=== PATIENT | female | born 1985 | race Caucasian/White ===

== ENCOUNTER 2016-10-04 08:53 | Day surgery (SDC) | payer OTHER ==
[~2016-10-04 08:53] MED LIST: RINGERS SOLUTION,LACTATED 1,000 ML IV PRN
[2016-10-04] MEDS ORDERED: RINGERS SOLUTION,LACTATED 1,000 ML IV ONE ×2 (09:30→11:35)
[2016-10-04 10:03] LABS: Hematocrit 36.8 % (37.0-47.0); Hemoglobin 12.3 gm/dL (12.5-16.0); Mean Cell Volume 85.4 fl (78-100); Mean Corpuscular Hemoglobin 28.5 pg (27-31); Mean Corpuscular Hgb Conc 33.4 g/dl (32-36); Neutrophil # 2.9 K/mm3 (1.3-6.0); Neutrophil % 58.6 % (42-75.0); Platelet Count 205 K/mm3 (150-450); Red Blood Count 4.31 M/mm3 (4.2-5.4); Red Cell Distribution Width 12.5 % (11.5-14.0)
--- NOTE | 2016-10-04 11:01 | OR ---
Operative Report - Dictated Report Narrative: Operative Report 10/04/16 Loop Electrical Excisional Procedure Preoperative Diagnosis: Cervical Intraepithelial Neoplasia 2 Postoperative Diagnosis: Cervical Intraepithelial Neoplasia 2 Procedure: Loop Electrical Excisional Procedure Surgeon: Kathy Avelar M.D. Anesthesia: Henrique Longoria TALENT DEVELOPMENT CONSULTANT, IV sedation Findings: Loop 20 x 8 mm Fluids: 400 ml EBL: Minimal Drains: None Pathology: LEEP specimen Complications: None Condition: Stable Procedure: The patient was taken to the operating room with IV fluids running. She was placed in dorsal lithotomy position. She was prepped and draped in the normal sterile fashion. A coated bivalve speculum was placed into the vagina. The cervix was visualized with the findings noted above. LEEP was performed with 20 x 8 mm loop. The entire area was cauterized with rollerball Bovie cautery. The area was hemostatic. The patient tolerated the procedure well. Sponge counts were correct x 2. She was taken to ambulatory in stable condition.
[2016-10-04] MEDS ORDERED: oxyCODONE HCL/ACETAMINOPHEN 1 TAB TABLET PO PRN (11:10)
[2016-10-04] MEDS ORDERED: IBUPROFEN 600 MG TABLET PO PRN (11:11)
[2016-10-04] MEDS ORDERED: traMADol HCL 50 MG TABLET PO ONE (13:00)
[2016-10-04] MEDS ORDERED: traMADol HCL 50 MG TABLET ONE (13:03)
[2016-10-04 14:16] VITALS: BP 108/60
== END 2016-10-04 08:54 | disposition home or self-care (01) ==
LOC: AMB 08:53
PROVIDERS: ATTEND Obstetrics & Gynecology
PROC: 0UBC7ZX Excision of Cervix, Via Natural or Artificial Opening, Diagnostic (ICD-10-PCS; principal; 2016-10-04 10:35)
DX: N87.1 Moderate cervical dysplasia (principal); Z68.21 Body mass index [BMI] 21.0-21.9, adult

== ENCOUNTER 2016-11-28 20:52 | Emergency (ER) | payer OTHER ==
[2016-11-28 21:47] LABS: Hematocrit 39.3 % (37.0-47.0); Hemoglobin 12.9 gm/dL (12.5-16.0); Mean Cell Volume 85.2 fl (78-100); Mean Corpuscular Hgb Conc 32.8 g/dl (32-36); Mean Platelet Volume 9.5 fl (6.0-9.5); Neutrophil # 3.1 K/mm3 (1.3-6.0); Platelet Count 278 K/mm3 (150-450); Red Blood Count 4.61 M/mm3 (4.2-5.4); Red Cell Distribution Width 12.6 % (11.5-14.0); White Blood Count 6.7 K/mm3 (4.0-10.5)
[2016-11-28 22:00] LABS: Albumin * 3.6 gm/dl (3.4-5.0); Anion Gap 11.2 mmol/L (6.8-13.8); BUN/Creatinine Ratio 13.6 (9.0-21.6); Bilirubin, Total 0.2 mg/dL (0.0-1.1); Ca. Corrected For Albumin 8.7 mg/dL (8.4-10.2); Calcium * 8.7 mg/dL (7.9-10.9); Carbon Dioxide 27.5 mmol/L (24-32.6); Potassium 3.7 mmol/L (3.4-4.6); Total Protein 7.7 gm/dL (6.2-8.2)
--- NOTE | 2016-11-28 22:50 | ERNOTE ---
Medical Problem HPI - General Chief Complaint: General Assessment Time Seen by Provider: 11/28/16 22:28 Source: patient Exam Limitations: no limitations - Immun/Allergies/Home Medications Immunizations: IMMUNIZATION HX Immunizations Up to Date No History of Influenza Vaccine Yes Hx Pneumococcal Vaccination No Allergies/Adverse Reactions: Allergies penicillin G Allergy (Mild, Verified 11/28/16 21:28) Hives promethazine HCl [From Phenergan] Adverse Reaction (Intermediate, Verified 11/28 21:28) Other choreform movements Sulfa (Sulfonamide Antibiotics) Adverse Reaction (Intermediate, Verified 21:28) Other paralysiss codeine Adverse Reaction (Mild, Verified 11/28/16 21:28) Vomiting nausea, anorexia hydrocodone bitartrate [From Vicodin] Adverse Reaction (Mild, Verified 11/28/16 21:28) Vomiting Home Medications: HOME MEDICATIONS Norgestimate-Ethinyl Estradiol [Ortho Tri-Cyclen Lo] 1 each PO DAILY 02/16/15 [ Last Taken Unknown] Eluxadoline [Viberzi] 75 mg PO 3XW 11/28/16 [Last Taken Unknown] Ibuprofen 800 mg PO Q4H 11/28/16 [Last Taken 11/28/16 16:00] - History of Present History Narrative: had chest pain 4 days ago and was seen at [facility] ED and dx with pleurisy. today she felt weak and possibly had syncopal episode. has headache that hurts when she moves her eyes. Timing: getting worse Severity: moderate Review of Systems - Review of Systems Constitutional: Present: recent illness - minor cough that resolved EYE: Present: eye pain - upon movements. Absent: vision changes ENT: Present: nose congestion - a week ago Respiratory: Present: See HPI, shortness of breath, cough Cardiology: Present: See HPI, chest pain Gastrointestinal/Abdominal: Absent: vomiting, diarrhea Genitourinary: Present: frequency. Absent: pain, dysuria Musculoskeletal: Present: no symptoms reported Skin: Present: no symptoms reported Neurological: Present: See HPI, headache, dizziness/light-headedness, weakness Endocrine: Present: no symptoms reported Hematologic/Lymphatic: Present: no symptoms reported Psych: Present: no symptoms reported - Patient's Past Medical History Patient History - Medical: Seizures, Other Patient History - Cardiac/Respiratory: Other Patient History - Cancer: No Hx of Cancer Patient History - Surgical Procedures: Cholecystectomy, Colonoscopy, , Other Patient History - Other: None LMP (Calendar): 09/29/16 - Family History Mother Family History - Medical: Other Family History - Cardiac/Respiratory: Other Family History - Cancer: Other Father Family History - Medical: Other Family History - Cardiac/Respiratory: Hypertension Family History - Cancer: No pertinent family hx Grandfather-Paternal Family History - Medical: Diabetes Type 2 Family History - Cardiac/Respiratory: Hypertension Family History - Cancer: No pertinent family hx Grandfather-Maternal Family History - Medical: No pertinent hx Family History - Cardiac/Respiratory: CVA/Stroke Family History - Cancer: No pertinent family hx Sister Family History - Medical: No pertinent hx Family History - Cardiac/Respiratory: No pertinent hx Family History - Cancer: Metatastic, Thyroid, Other - Social History Living Situations: home Abuse History: No History of abuse Psych History: Hx of Depression Smoking Status: Never smoker Alcohol Use: occasionally Drug Use: none - Immunizations Immunizations Up to Date: No Hx Pneumococcal Vaccination: No History of Influenza Vaccine: Yes Physical Exam - Physical Exam General Appearance: Present: wd/wn, lethargic - somewhat Eye Exam: Normal inspection: bilateral, PERRL: bilateral, EOMI: bilateral Ears, Nose, Throat: Present: normal ENT inspection, normal pharynx. Absent: sinus pain/drainage Neck: Present: normal inspection, nontender Respiratory: Present: no respiratory distress, normal breath sounds, no accessory muscle use, chest nontender, lungs clear Cardiovascular/Chest: Present: regular rate, rhythm, no murmur, normal peripheral pulses Gastrointestinal/Abdominal: Present: normal bowel sounds, nontender, nondistended Back Exam: Present: normal inspection, normal range of motion Extremity Exam: Present: normal inspection, normal range of motion Neurological Exam: Present: oriented, no motor/sensory deficits Skin Exam: Present: normal color, warm/dry Lymphatic Exam: Present: no adenopathy ED Progress - Results and Orders Patient's Lab Results:: I have reviewed the patient's lab results. Results and Orders: Laboratory Tests 11/28/16 11/28/16 11/28/16 21:34 21:45 21:45 WBC 6.7 Hgb 12.9 Hct 39.3 Plt Count 278 ESR 20 H D-Dimer Sodium 139 Potassium 3.7 Chloride 104 Carbon Dioxide 27.5 Anion Gap 11.2 BUN 9 Creatinine 0.66 Est GFR (Non-Af Amer) 111 Random Glucose 95 Calcium 8.7 Total Bilirubin 0.2 AST 18 ALT 22 Alkaline Phosphatase 40 L C-Reactive Prot, Quant Total Protein 7.7 Albumin 3.6 TSH Urine Color Urine Appearance Urine pH Ur Specific [place] Urine Protein Urine Glucose (UA) Urine Ketones Urine Blood Urine Nitrate Urine Bilirubin Urine Urobilinogen Ur Leukocyte Esterase Urine RBC Urine WBC Ur Epithelial Cells Urine Bacteria Urine Culture Comments 11/28/16 11/28/16 11/28/16 21:45 21:53 23:07 WBC Hgb Hct Plt Count ESR D-Dimer 0.34 Sodium Potassium Chloride Carbon Dioxide Anion Gap BUN Creatinine Est GFR (Non-Af Amer) Random Glucose Calcium Total Bilirubin AST ALT Alkaline Phosphatase C-Reactive Prot, Quant 0.2 Total Protein Albumin TSH 2.986 Urine Color Yellow Urine Appearance Clear Urine pH 8.0 H Ur Specific [place] 1.015 Urine Protein Negative Urine Glucose (UA) Negative Urine Ketones Negative Urine Blood 10 H Urine Nitrate Negative Urine Bilirubin Negative Urine Urobilinogen Normal Ur Leukocyte Esterase Negative Urine RBC Trace Urine WBC None seen Ur Epithelial Cells 5-10 H Urine Bacteria Trace Urine Culture Comments No culture indicated - Vital Signs Patient's Vital Signs:: I have reviewed the patient's vital signs. Vital Signs: Vital Signs 11/28/16 21:21 Temperature 36.6 C Pulse Rate 85 Respiratory 18 Rate Blood Pressure 128/71 O2 Sat by Pulse 98 Oximetry - X-Ray X-Ray #1 X-Ray: chest Interpretation: Interp. by me X-ray Comments: normal - CT/Ultrasound CT/Ultrasound Narrative: CT HEAD: no evidence of hemorrhage or infarct. - Progress/Reassessment Chief Complaint: General Assessment Progress:: Improved Departure - Departure Clinical Impression: Fatigue Qualifiers: Fatigue type: unspecified Qualified Code(s): R53.83 - Other fatigue Disposition: Home self-care Condition: Good Instructions: Fatigue Additional Instructions: continue to drink plenty of fluids. Take 2-3 days off of work and get plenty of rest. use ibuprofen as needed for discomfort Referrals: Yasmine Garcia MD [Primary Care Provider] -
--- OUTSIDE RECORDS SUMMARY | 2016-11-28 22:52 | XMS REPORT | Continuity of Care Document ---
:1985 Demographics Phone Unavailable Preferred Language Unknown Marital Status Unknown Jehovah'S Witness Affiliation Unknown Race Unknown Ethnic Group Unknown Author Organization [facility] ([facility]) [place] [address] Phone [phone] Care Team Providers Name Role Phone Unavailable Primary Care Provider Unavailable Source Comments This disclosure is being made pursuant to the Care Everywhere program, applicable federal and state laws, and may not contain all informaitonavailable regarding this patient.[facility] ([facility]) Active Allergies and Adverse Reactions Not on File Current Medications Not on file Active Problems Not on file Social History Tobacco Use Types Packs/Day Years Used Date Never Assessed Plan of Care Health Maintenance Due Date Last Done Comments Hepatitis B Vaccine (1 of 3 - Primary Series) 1985 Tdap Vaccine 1996 Lipid Disorder Screening 2003 MMR Vaccine 2003 Td Vaccine 2003 Varicella Vaccine (1 of 2 - Adult - No Evidence of 2003 Immunity) Cervical Cancer Screening 2015 Influenza Vaccine: Seasonal (#1) 03/28/2016 Results from Last 3 Months Not on file
[2016-11-28 23:08] LABS: CRP 0.2 mg/dL (0.0-0.9); TSH * 2.986 uIU/mL (0.358-3.74)
[2016-11-28 23:24] LABS: Urine Bilirubin Negative (NEGATIVE); Urine Ketone Negative (NEGATIVE); Urine Nitrite Negative (NEGATIVE); Urine Protein Negative (NEGATIVE); Urine Specific Gravity 1.015 SP.GR. (1.005-1.010); Urine Urobilinogen Normal (NORMAL)
[2016-11-28 23:31] LABS: Urine Appearance Clear; Urine Bacteria TRACE; Urine Blood 10 /ul (NEGATIVE); Urine Color Yellow; Urine RBC TRACE /hpf (0-5); Urine WBC None Seen /hpf (0-5)
[2016-11-29] MEDS ORDERED: KETOROLAC TROMETHAMINE 60 MG/2 ML VIAL IM ONE ×2 (01:02→01:07)
[2016-11-29 01:36] VITALS: BP 104/48
== END 2016-11-29 01:28 | disposition home or self-care (01) ==
LOC: ER 20:52
DX: R53.83 Other fatigue (principal); R51 Headache

== ENCOUNTER 2017-01-22 21:22 | Emergency (ER) | payer OTHER ==
[2017-01-22 21:34] VITALS: BP 119/69
--- NOTE | 2017-01-22 22:15 | ERNOTE ---
Lower Extremity HPI - Narrative Date of Service: 01/22/17 - General Lower Extremities Pain: hip: bilateral - normal range of motion bilaterally, leg : left - ecchymosis noted medial and lateral proximal left leg. No obvious involvement of the knee itself., knee: bilateral - normal range of motion bilaterally., thigh: bilateral - normal range of motion bilaterally, foot: bilateral - same, ankle: bilateral - same, heel: bilateral - same Source: patient, family Exam Limitations: no limitations - Immun/Allergies/Home Medications Immunizations: IMMUNIZATION HX Immunizations Up to Date Yes History of Influenza Vaccine Yes Hx Pneumococcal Vaccination No Allergies/Adverse Reactions: Allergies Allergy/AdvReac Type Severity Reaction Status Date / Time penicillin G Allergy Mild Hives Verified 11/28/16 21:28 promethazine HCl AdvReac Intermediate Other Verified 11/28/16 21:28 [From Phenergan] Sulfa (Sulfonamide AdvReac Intermediate Other Verified 11/28/16 21:28 Antibiotics) codeine AdvReac Mild Vomiting Verified 11/28/16 21:28 hydrocodone bitartrate AdvReac Mild Vomiting Verified 11/28/16 21:28 [From Vicodin] Home Medications: HOME MEDICATIONS Norgestimate-Ethinyl Estradiol [Ortho Tri-Cyclen Lo] 1 each PO DAILY 02/16/15 [ Last Taken Unknown] Eluxadoline [Viberzi] 75 mg PO 3XW 11/28/16 [Last Taken Unknown] Ibuprofen 800 mg PO Q4H 11/28/16 [Last Taken 11/28/16 16:00] Metoprolol Succinate [Toprol Xl] 100 mg PO BID 01/22/17 [Last Taken Unknown] - History of Present Illness Narrative: Patient 31-year-old female thrown off horse yesterday evening. Patient with swelling localized to the proximal left leg with normal knee range of motion. Patient elevated leg and used Timo wrap last night. Reports swelling is better but has persistent pain especially with weightbearing. Patient with prior history of meniscal injury and partial ACL repair same knee. Occurred: yesterday Location of Incident: other Method of Injury: Reports: direct blow Reason for Fall: Reports: other Loss of Consciousness: Reports: no loss of consciousness Modifying Factors - (Improves): Reports: immobilization, rest Modifying Factors - (Worsens): Reports: movement Associated Symptoms: Reports: other injuries - see above Other Injuries: Reports: none Subsequent Symptoms: Reports: sensory loss - patient with mild decreased sensation involving the left toes 1 through 5. Normal strength and range of motion involving left lower extremity. Prior Treament: Reports: other Review of Systems - Review of Systems Constitutional: Present: no symptoms reported EYE: Present: no symptoms reported ENT: Present: no symptoms reported Respiratory: Present: no symptoms reported Cardiology: Present: no symptoms reported Gastrointestinal/Abdominal: Present: no symptoms reported Genitourinary: Present: no symptoms reported Musculoskeletal: Present: muscle pain, other - pain localized to the proximal left leg. No involvement of left knee noted. Skin: Present: change in color Neurological: Present: tingling - tingling reported left toes 1 through 5. Endocrine: Present: no symptoms reported Hematologic/Lymphatic: Present: no symptoms reported Psych: Present: no symptoms reported - Patient's Past Medical History Patient History - Medical: Seizures, Other Patient History - Cardiac/Respiratory: No pertinent hx, Hypertension, Other Patient History - Cancer: No Hx of Cancer Patient History - Surgical Procedures: Cholecystectomy, Colonoscopy, , Other - left knee surgery. Above arthroscopic with meniscal and ACL repair. Right hand open reduction internal fixation involving metacarpals. Patient History - Other: None LMP (females 10-50): 3 months LMP (Calendar): 09/29/16 - Family History Mother Family History - Medical: Other Family History - Cardiac/Respiratory: Other Family History - Cancer: Other Father Family History - Medical: Other Family History - Cardiac/Respiratory: Hypertension Family History - Cancer: No pertinent family hx Grandfather-Paternal Family History - Medical: Diabetes Type 2 Family History - Cardiac/Respiratory: Hypertension Family History - Cancer: No pertinent family hx Grandfather-Maternal Family History - Medical: No pertinent hx Family History - Cardiac/Respiratory: CVA/Stroke Family History - Cancer: No pertinent family hx Sister Family History - Medical: No pertinent hx Family History - Cardiac/Respiratory: No pertinent hx Family History - Cancer: Metatastic, Thyroid, Other - Social History Living Situations: alone Abuse History: No History of abuse Psych History: Hx of Depression Smoking Status: Never smoker Alcohol Use: occasionally Drug Use: none - Immunizations Immunizations Up to Date: Yes Hx Pneumococcal Vaccination: No History of Influenza Vaccine: Yes Physical Exam - Physical Exam General Appearance: Present: wd/wn, alert, mild distress Eye Exam: Normal inspection: bilateral - examination normal, PERRL: bilateral, EOMI: bilateral Ears, Nose, Throat: Present: normal ENT inspection, normal pharynx Neck: Present: normal inspection, nontender Respiratory: Present: no respiratory distress, normal breath sounds, no accessory muscle use, chest nontender, lungs clear Cardiovascular/Chest: Present: regular rate, rhythm, no murmur, normal peripheral pulses Peripheral Pulses: N=norm/S=strong/W=weak/B=bound/A=absent: Carotid (R): Normal , Carotid (L): Normal, Radial (R): Normal, Radial (L): Normal, Dorsalis-pedis (R ): Normal, Dorsalis-pedis (L): Normal Gastrointestinal/Abdominal: Present: normal bowel sounds, nontender, nondistended, soft, no organomegaly Rectal Exam: Present: deferred Back Exam: Present: normal inspection, normal range of motion, no CVA tenderness , no vertebral tenderness Extremity Exam: Present: normal inspection, non-tender, normal range of motion, no edema Neurological Exam: Present: alert, oriented, normal mood/affect, certified low vision therapist II-XII nml as tested, other - mild decreased sensation involving left toes 1 through 5. ED Progress - Vital Signs Patient's Vital Signs:: I have reviewed the patient's vital signs. Vital Signs: Vital Signs 01/22/17 21:26 Temperature 36.9 C Pulse Rate 83 Respiratory 16 Rate Blood Pressure 119/69 O2 Sat by Pulse 100 Oximetry - X-Ray X-Ray #1 X-Ray: leg - x-ray of left tib-fib and knee shows no acute bony injury. - Progress/Reassessment Chief Complaint: Lower Extremity Pain/ Injury Departure Clinical Impression: Contusion - Departure Disposition: Home self-care Condition: Good Additional Instructions: Please use crutches with no weightbearing 1 week thereafter as necessary for pain relief. Elevate left leg is much as possible over the next 2 weeks. Continue to use her Timo bandage for the next 2 weeks. Ice 30 minutes on every 2 hours for the next 5 days. No heat or BenGay like products over same time. Oxycodone/acetaminophen 1-2 tabs as needed every 8 hours. Do not take any other acetaminophen products with the above. He may also use ibuprofen 800 mg with food 3 times daily for the next 7-10 days. Follow-up with primary provider if not markedly better 7-10 days. Referrals: Yasmine Garcia MD [Primary Care Provider] -
[2017-01-22] MEDS: oxyCODONE HCL/ACETAMINOPHEN 1 TAB TABLET PO ONE (22:27)
[2017-01-22] MEDS ORDERED: oxyCODONE HCL/ACETAMINOPHEN 1 TAB TABLET ONE (22:28)
--- OUTSIDE RECORDS SUMMARY | 2017-01-22 22:30 | XMS REPORT | Continuity of Care Document ---
:1985 Demographics Phone Unavailable Preferred Language Unknown Marital Status Unknown Uatsdin Affiliation Unknown Race Unknown Ethnic Group Unknown Author Organization [facility] ([facility]) Address [place] [address] Phone [phone] Care Team Providers Name Role Phone Unavailable Primary Care Provider Unavailable Source Comments This disclosure is being made pursuant to the Care Everywhere program, applicable federal and state laws, and may not contain all informaitonavailable regarding this patient.[facility] ([facility]) Active Allergies and Adverse Reactions Not [...]
== END 2017-01-22 22:30 | disposition home or self-care (01) ==
LOC: ER 21:22
DX: T14.8 Other injury of unspecified body region (principal); V80.010A Animal-rider injured by fall from or being thrown from horse in noncollision accident, initial encounter

== ENCOUNTER 2017-03-09 13:34 | Emergency (ER) | payer OTHER ==
[2017-03-09] MEDS ORDERED: NORMAL SALINE 1,000 ML IV ONE (13:59)
[2017-03-09] MEDS ORDERED: HYDROmorphone HCL 1 MG/ML DISP.SYRIN IV ONE (14:00)
[2017-03-09 14:06] LABS: Hematocrit 39.8 % (37.0-47.0); Hemoglobin 13.3 gm/dL (12.5-16.0); Mean Cell Volume 84.3 fl (78-100); Mean Corpuscular Hemoglobin 28.2 pg (27-31); Mean Corpuscular Hgb Conc 33.4 g/dl (32-36); Mean Platelet Volume 9.4 fl (6.0-9.5); Neutrophil # 3.1 K/mm3 (1.3-6.0); Neutrophil % 67.6 % (42-75.0); Platelet Count 242 K/mm3 (150-450); Red Blood Count 4.72 M/mm3 (4.2-5.4); Red Cell Distribution Width 12.9 % (11.5-14.0); White Blood Count 4.5 K/mm3 (4.0-10.5)
[2017-03-09 14:18] LABS: Albumin * 3.8 gm/dl (3.4-5.0); Anion Gap 11.1 mmol/L (6.8-13.8); BUN/Creatinine Ratio 14.3 (9.0-21.6); Bilirubin, Total 0.4 mg/dL (0.0-1.1); Ca. Corrected For Albumin 8.5 mg/dL (8.4-10.2); Calcium * 8.7 mg/dL (7.9-10.9); Carbon Dioxide 27.3 mmol/L (24-32.6); Potassium 4.4 mmol/L (3.4-4.6); Total Protein 7.5 gm/dL (6.2-8.2)
[2017-03-09] MEDS ORDERED: HYDROmorphone HCL 1 MG/ML DISP.SYRIN ONE (14:22)
[2017-03-09 15:11] LABS: Urine Bilirubin Negative (NEGATIVE); Urine Ketone Negative (NEGATIVE); Urine Nitrite Negative (NEGATIVE); Urine Protein 15 mg/dL (NEGATIVE); Urine Specific Gravity 1.015 SP.GR. (1.005-1.010); Urine Urobilinogen Normal (NORMAL); Urine pH 7.5 pH (5.0-7.0)
[2017-03-09 15:28] LABS: Urine Appearance Clear; Urine Blood 5 /ul (NEGATIVE); Urine Color Yellow
[2017-03-09 15:31] LABS: Urine Bacteria 1+; Urine RBC TRACE /hpf (0-5); Urine WBC None Seen /hpf (0-5)
[2017-03-09] MEDS ORDERED: ONDANSETRON HCL/PF 2 MG/ML VIAL IV ONE (16:32)
[2017-03-09] MEDS ORDERED: ONDANSETRON HCL/PF 2 MG/ML VIAL ONE (16:47)
[2017-03-09 17:11] VITALS: BP 141/74
--- NOTE | 2017-03-09 17:34 | ERNOTE ---
Abdominal HPI - Narrative Date of Service: 03/09/17 - General Chief Complaint: Abdominal Pain Time Seen by Provider: 03/09/17 13:47 Source: patient Exam Limitations: no limitations - Immun/Allergies/Home Medications Immunizatons: IMMUNIZATION HX Immunizations Up to Date Yes History of Influenza Vaccine Yes Hx Pneumococcal Vaccination No Allergies/Adverse Reactions: Allergies penicillin G Allergy (Mild, Verified 03/09/17 13:43) Hives promethazine HCl [From Phenergan] Adverse Reaction (Intermediate, Verified 03/09 13:43) Other choreform movements Sulfa (Sulfonamide Antibiotics) Adverse Reaction (Intermediate, Verified 13:43) Other paralysiss codeine Adverse Reaction (Mild, Verified 03/09/17 13:43) Vomiting nausea, anorexia hydrocodone bitartrate [From Vicodin] Adverse Reaction (Mild, Verified 03/09/17 13:43) Vomiting Home Medications: HOME MEDICATIONS Norgestimate-Ethinyl Estradiol [Ortho Tri-Cyclen Lo] 1 each PO DAILY 02/16/15 [ Last Taken Unknown] Ibuprofen 800 mg PO Q4H 11/28/16 [Last Taken 11/28/16 16:00] Metoprolol Succinate [Toprol Xl] 100 mg PO BID 01/22/17 [Last Taken Unknown] traMADol HCL [Ultram] 50 mg PO QID #30 tablet 03/09/17 [Last Taken Unknown] - History of Present Illness Narrative: patient c/o right lower back pain, past hx of renal lithiasis Timing: constant, getting worse Quality: moderate, sharpness Activities at Onset: none Modifying Factors - (Improves): Present: other - nothing Modifying Factors - (Worsens): Present: movement Associated Symptoms: Present: denies symptoms Prior Abdominal Problems: Present: similar symptoms Prior Treatment: Present: recently seen - patient sent from outpatient clinic Review of Systems - Review of Systems Constitutional: Present: no symptoms reported EYE: Present: no symptoms reported ENT: Present: no symptoms reported Respiratory: Present: no symptoms reported Cardiology: Present: no symptoms reported Gastrointestinal/Abdominal: Present: no symptoms reported Genitourinary: Present: no symptoms reported Musculoskeletal: Present: muscle pain, muscle stiffness Skin: Present: no symptoms reported Neurological: Present: no symptoms reported Endocrine: Present: no symptoms reported Hematologic/Lymphatic: Present: no symptoms reported Psych: Present: no symptoms reported All Other Systems: All systems neg except as marked - Patient's Past Medical History Patient History - Medical: No pertinent hx, Seizures, Other Patient History - Cardiac/Respiratory: No pertinent hx, Hypertension, Other Patient History - Cancer: No Hx of Cancer Patient History - Surgical Procedures: Cholecystectomy, Colonoscopy, , Other Patient History - Other: None LMP (Calendar): 09/29/16 - Family History Family History:: no untoward family reactions to anesthesia, no family history of clotting disorders - Family History Mother Family History - Medical: Other Family History - Cardiac/Respiratory: Other - renal lithiasis Family History - Cancer: Other Father Family History - Medical: Other Family History - Cardiac/Respiratory: Hypertension Family History - Cancer: No pertinent family hx Grandfather-Paternal Family History - Medical: Diabetes Type 2 Family History - Cardiac/Respiratory: Hypertension Family History - Cancer: No pertinent family hx Grandfather-Maternal Family History - Medical: No pertinent hx Family History - Cardiac/Respiratory: CVA/Stroke Family History - Cancer: No pertinent family hx Sister Family History - Medical: No pertinent hx Family History - Cardiac/Respiratory: No pertinent hx Family History - Cancer: Metatastic, Thyroid, Other - Social History Living Situations: home Abuse History: No History of abuse Psych History: Hx of Depression Smoking Status: Never smoker Have you smoked in the past 12 months: No Do you dip or chew tobacco: No Patient requests Smoking Cessation Consult: No Alcohol Use: occasionally Drug Use: none - Immunizations Immunizations Up to Date: Yes Hx Pneumococcal Vaccination: No History of Influenza Vaccine: Yes Physical Exam - Physical Exam General Appearance: Present: mild distress Head Exam: Present: normal inspection Eye Exam: Normal inspection: bilateral, PERRL: bilateral, EOMI: bilateral Ears, Nose, Throat: Present: normal ENT inspection Neck: Present: normal inspection, nontender Respiratory: Present: no respiratory distress, normal breath sounds, no accessory muscle use, chest nontender, lungs clear Cardiovascular/Chest: Present: regular rate, rhythm, no murmur, normal peripheral pulses Peripheral Pulses: N=norm/S=strong/W=weak/B=bound/A=absent: Carotid (R): Normal , Carotid (L): Normal, Radial (R): Normal, Radial (L): Normal, Femoral (R): Normal, Femoral (L): Normal, Dorsalis-pedis (R): Normal, Dorsalis-pedis (L): Normal Gastrointestinal/Abdominal: Present: normal bowel sounds, nontender, nondistended, soft, no organomegaly Back Exam: Present: vertebral tenderness, decreased range of motion, muscle spasm - right flank Extremity Exam: Present: normal inspection, non-tender, normal range of motion, no edema ED Progress - Results and Orders Patient's Lab Results:: I have reviewed the patient's lab results. - Vital Signs Patient's Vital Signs:: I have reviewed the patient's vital signs. - ct unremarkable , no stones Vital Signs: Vital Signs 03/09/17 03/09/17 03/09/17 13:39 15:26 17:10 Temperature 36.1 C L Pulse Rate 77 69 73 Respiratory 14 14 15 Rate Blood Pressure 125/75 140/75 141/74 O2 Sat by Pulse 100 98 98 Oximetry - Progress/Reassessment Chief Complaint: Abdominal Pain Departure - Departure Clinical Impression: Back pain Disposition: Home self-care Condition: Fair Instructions: Back Pain, Adult Referrals: Yasmine Garcia MD [Primary Care Provider] - Prescriptions: traMADol HCL [Ultram] 50 mg PO QID #30 tablet
== END 2017-03-09 17:35 | disposition home or self-care (01) ==
LOC: ER 13:34
DX: M54.9 Dorsalgia, unspecified (principal); I10 Essential (primary) hypertension

== ENCOUNTER 2017-07-19 09:59 | Emergency (ER) | payer OTHER ==
[2017-07-19] MEDS ORDERED: NORMAL SALINE 1,000 ML IV ONE (10:29)
[2017-07-19] MEDS ORDERED: KETOROLAC TROMETHAMINE 30 MG/ML VIAL IV ONE (10:29)
[2017-07-19] MEDS ORDERED: METOCLOPRAMIDE HCL 5 MG/ML VIAL IV ONE (10:29)
--- NOTE | 2017-07-19 10:37 | ERNOTE ---
Medical Problem HPI - Narrative Date of Service: 07/19/17 - General Chief Complaint: Nausea/Vomiting Time Seen by Provider: 07/19/17 10:18 Source: patient, family, RN notes reviewed Exam Limitations: no limitations - Immun/Allergies/Home Medications Immunizations: IMMUNIZATION HX Immunizations Up to Date Yes History of Influenza Vaccine Yes Hx Pneumococcal Vaccination No Allergies/Adverse Reactions: Allergies penicillin G Allergy (Mild, Verified 07/19/17 10:14) Hives promethazine HCl [From Phenergan] Adverse Reaction (Intermediate, Verified 07/19 10:14) Other choreform movements Sulfa (Sulfonamide Antibiotics) Adverse Reaction (Intermediate, Verified 10:14) Other paralysiss codeine Adverse Reaction (Mild, Verified 07/19/17 10:14) Vomiting nausea, anorexia hydrocodone bitartrate [From Vicodin] Adverse Reaction (Mild, Verified 07/19/17 10:14) Vomiting Home Medications: HOME MEDICATIONS Norgestimate-Ethinyl Estradiol [Ortho Tri-Cyclen Lo] 1 each PO DAILY 02/16/15 [ Last Taken Unknown] Ibuprofen 800 mg PO Q4H 11/28/16 [Last Taken 11/28/16 16:00] Metoprolol Succinate [Toprol Xl] 100 mg PO BID 01/22/17 [Last Taken Unknown] traMADol HCL [Ultram] 50 mg PO QID #30 tablet 03/09/17 [Last Taken Unknown] - History of Present History Narrative: 32 year old female ambulatory to the ED for vomiting that began yesterday morning. She also had diarrhea yesterday. She reports being unable to keep anything down despite taking Zofran. She also complains of severe body aches. She has occasional sharp pain in her abdomen. She reports having sick contacts at work. Date (Duration): 07/18/17 Review of Systems - Review of Systems Constitutional: Present: fatigue, malaise. Absent: recent illness EYE: Present: no symptoms reported ENT: Absent: nose congestion, sore throat Respiratory: Absent: shortness of breath, cough Cardiology: Absent: chest pain, syncope Gastrointestinal/Abdominal: Present: nausea, vomiting, diarrhea, abdominal pain , eating less, drinking less Genitourinary: Absent: frequency, dysuria, decreased urinary output Musculoskeletal: Present: muscle pain, joint pain. Absent: muscle stiffness, joint swelling Skin: Absent: rash, lesions, lumps Neurological: Present: dizziness/light-headedness. Absent: headache Endocrine: Present: no symptoms reported Hematologic/Lymphatic: Absent: easy bruising, easy bleeding Psych: Present: no symptoms reported - Patient's Past Medical History Patient History - Medical: Seizures, Other Patient History - Cardiac/Respiratory: Hypertension, Other Patient History - Cancer: No Hx of Cancer Patient History - Surgical Procedures: Cholecystectomy, Colonoscopy, , Other Patient History - Other: None LMP (females 10-50): last week - Family History Mother Family History - Medical: Other Family History - Cardiac/Respiratory: Other Family History - Cancer: Other Father Family History - Medical: Other Family History - Cardiac/Respiratory: Hypertension Family History - Cancer: No pertinent family hx Grandfather-Paternal Family History - Medical: Diabetes Type 2 Family History - Cardiac/Respiratory: Hypertension Family History - Cancer: No pertinent family hx Grandfather-Maternal Family History - Medical: No pertinent hx Family History - Cardiac/Respiratory: CVA/Stroke Family History - Cancer: No pertinent family hx Sister Family History - Medical: No pertinent hx Family History - Cardiac/Respiratory: No pertinent hx Family History - Cancer: Metatastic, Thyroid, Other - Social History Living Situations: home Abuse History: No History of abuse Psych History: Hx of Depression Smoking Status: Never smoker Alcohol Use: none Drug Use: none - Immunizations Immunizations Up to Date: Yes Hx Pneumococcal Vaccination: No History of Influenza Vaccine: Yes Physical Exam - Physical Exam General Appearance: Present: alert, mild distress, thin Head Exam: Present: normal inspection Eye Exam: Normal inspection: bilateral Neck: Present: normal inspection, nontender, supple Respiratory: Present: no respiratory distress, normal breath sounds, no accessory muscle use, lungs clear Cardiovascular/Chest: Present: regular rate, rhythm, no murmur, normal peripheral pulses Gastrointestinal/Abdominal: Present: normal bowel sounds, nondistended, soft, tenderness - Mild, RLQ. Absent: guarding, rebound, mass Extremity Exam: Present: normal inspection, normal range of motion, no edema Neurological Exam: Present: alert, oriented, normal mood/affect, no motor/ sensory deficits Skin Exam: Present: warm/dry, pallor ED Progress - Results and Orders Patient's Lab Results:: I have reviewed the patient's lab results. - Vital Signs Patient's Vital Signs:: I have reviewed the patient's vital signs. Vital Signs: Vital Signs 07/19/17 10:10 Temperature 36.7 C Pulse Rate 102 H Respiratory 12 Rate Blood Pressure 105/67 O2 Sat by Pulse 96 Oximetry - X-Ray X-Ray #1 X-Ray: abdomen Interpretation: Reviewed by me X-ray Comments: TECHNIQUE: AP upright and supine views of the abdomen were obtained, total of 3 images. COMPARISONS: None available. FINDINGS: Abdomen Flat W/ Upright *: No subdiaphragmatic free air. Surgical clips are seen in the right upper quadrant. No abnormal dilation of large or small bowel. There is a 5 mm calcification overlying the left renal shadow in the left upper quadrant. Osseous structures are intact. IMPRESSION: 1. Nonobstructive bowel gas pattern. 2. Potential left-sided renal calcification. Correlate clinically. Electronically signed by Vivien Penalzoa M.D.. - Progress/Reassessment Chief Complaint: Nausea/Vomiting Progress:: Improved Departure Clinical Impression: Nausea and vomiting Qualifiers: Vomiting type: unspecified Vomiting Intractability: unspecified Qualified Code( s): R11.2 - Nausea with vomiting, unspecified - Departure Disposition: Home Follow Up Needed Condition: Stable Instructions: Viral Gastroenteritis, Adult, [id number], Form - Excuse from Work, School, or Physical Activity Additional Instructions: Liquids as discussed, then advance diet as tolerated Follow up as needed for new/worsening symptoms Referrals: Yasmine Garcia MD [Primary Care Provider] -
[2017-07-19] MEDS ORDERED: KETOROLAC TROMETHAMINE 30 MG/ML VIAL ONE (10:40)
[2017-07-19] MEDS ORDERED: METOCLOPRAMIDE HCL 5 MG/ML VIAL ONE (10:40)
[2017-07-19 10:55] LABS: Hematocrit 38.8 % (37.0-47.0); Hemoglobin 13.2 gm/dL (12.5-16.0); Mean Cell Volume 82.7 fl (78-100); Mean Corpuscular Hemoglobin 28.1 pg (27-31); Mean Platelet Volume 9.3 fl (6.0-9.5); Neutrophil # 5.2 K/mm3 (1.3-6.0); Neutrophil % 81.5 % (42-75.0); Platelet Count 202 K/mm3 (150-450); Red Blood Count 4.69 M/mm3 (4.2-5.4); Red Cell Distribution Width 12.5 % (11.5-14.0); White Blood Count 6.4 K/mm3 (4.0-10.5)
[2017-07-19 11:05] LABS: Albumin * 3.8 gm/dl (3.4-5.0); Anion Gap 16.5 mmol/L (6.8-13.8); BUN/Creatinine Ratio 15.5 (9.0-21.6); Bilirubin, Total 0.8 mg/dL (0.0-1.1); Ca. Corrected For Albumin 8.5 mg/dL (8.4-10.2); Calcium * 8.7 mg/dL (7.9-10.9); Carbon Dioxide 25.9 mmol/L (24-32.6); Potassium 3.4 mmol/L (3.4-4.6); Total Protein 7.5 gm/dL (6.2-8.2)
[2017-07-19 11:06] LABS: Urine Bilirubin 1 mg/dl (NEGATIVE); Urine Blood 50 /ul (NEGATIVE); Urine Ketone Large mg/dL (NEGATIVE); Urine Nitrite Negative (NEGATIVE); Urine Protein 15 mg/dL (NEGATIVE); Urine Specific Gravity 1.025 SP.GR. (1.005-1.010); Urine Urobilinogen Normal (NORMAL)
[2017-07-19 11:14] LABS: Urine Appearance Clear; Urine Bacteria None Seen; Urine Color Dark Yellow; Urine RBC 0-5 /hpf (0-5); Urine WBC None Seen /hpf (0-5)
[2017-07-19 12:07] VITALS: BP 109/59
== END 2017-07-19 12:39 | disposition home or self-care (01) ==
LOC: ER 09:59
DX: R11.2 Nausea with vomiting, unspecified (principal)

== ENCOUNTER 2019-09-03 19:08 | Observation (INO) ==
[2019-09-03] MEDS ORDERED: MAGNESIUM SULFATE IN WATER 50 ML, MAGNESIUM SULFATE IN WATER 50 ML IV ONE ×2 (20:09)
[2019-09-03] MEDS ORDERED: BETAMETHASONE ACETATE,SOD PHOS 6 MG/ML VIAL IM ONE (20:09)
[2019-09-03] MEDS ORDERED: DEXTROSE 5%-LACTATED RINGERS 1,000 ML IV PRN (20:09)
[2019-09-03] MEDS ORDERED: VANCOMYCIN HCL 2 GM in DEXTROSE 5 % IN WATER 500 ML IV ONE ×2 (21:00)
[2019-09-03] MEDS ORDERED: MAGNESIUM SULFATE IN WATER 1,000 ML IV SCH (21:00)
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
[2019-09-03 23:33] VITALS: BP 121/63
[2019-09-04] MEDS ORDERED: VANCOMYCIN HCL 1 GM in DEXTROSE 5 % IN WATER 250 ML IV SCH ×2 (09:00)
== END 2019-09-03 22:12 | disposition short-term general hospital (02) ==
LOC: OBCLINIC 19:08 → OB 19:08
PROVIDERS: ADMIT Obstetrics & Gynecology; ATTEND Obstetrics & Gynecology
CPT/HCPCS: 59025; 96372

== ENCOUNTER 2019-10-25 | Inpatient (IN) ==
[~2019-10-25] MED LIST changes: +DEXTROSE 5%-LACTATED RINGERS 1,000 ML IV PRN; +RINGER'S SOLUTION,LACTATED 1,000 ML IV ONE; -RINGERS SOLUTION,LACTATED 1,000 ML IV PRN; +VANCOMYCIN HCL 1.5 GM in NORMAL SALINE 500 ML IV SCH; +VANCOMYCIN/WATER FOR INJ (PEG) 1.5 GM/300 ML BAG IV SCH
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
[2019-10-26] MEDS ORDERED: RINGER'S SOLUTION,LACTATED 1,000 ML IV PRN (18:04)
[2019-10-26] MEDS ORDERED: OXYTOCIN 20 UNITS in RINGER'S SOLUTION,LACTATED 1,000 ML IV ONE ×2 (18:04→22:12)
[2019-10-26] MEDS ORDERED: VANCOMYCIN/WATER FOR INJ (PEG) 1.5 GM/300 ML BAG IV SCH (18:15)
[2019-10-26 18:48] LABS: Cocaine Ur Negative (NEGATIVE); Urine Barbiturate Negative (NEGATIVE); Urine Benzodiazepines Negative (NEGATIVE); Urine Opiates Negative (NEGATIVE); Urine PCP Negative (NEGATIVE); Urine THC Negative (NEGATIVE)
[2019-10-26] MEDS ORDERED: NORMAL SALINE IV PRN (19:00)
[2019-10-26] MEDS ORDERED: VANCOMYCIN HCL IV PRN (19:00)
[2019-10-26] MEDS ORDERED: VANCOMYCIN HCL 1.5 GM in NORMAL SALINE 500 ML IV SCH (19:00)
[2019-10-26] MEDS ORDERED: BUPIVACAINE HCL/EPINEPHRINE 50 ML VIAL ONE (19:53)
[2019-10-26] MEDS ORDERED: fentaNYL CITRATE/PF 50 MCG/ML AMPUL ONE (19:53)
[2019-10-26] MEDS ORDERED: MIDAZOLAM HCL/PF 5 MG/ML VIAL ONE (19:53)
[2019-10-26] MEDS ORDERED: ONDANSETRON HCL/PF 2 MG/ML VIAL ONE (19:53)
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
[2019-10-26] MEDS ORDERED: BISACODYL 10 MG SUPP.RECT RC PRN (22:12)
[2019-10-26] MEDS ORDERED: SIMETHICONE 80 MG TAB.CHEW PO PRN (22:12)
[2019-10-26] MEDS ORDERED: IBUPROFEN 800 MG TABLET PO PRN (22:12)
[2019-10-26] MEDS ORDERED: SENNOSIDES 8.6 MG TABLET PO PRN (22:12)
[2019-10-26] MEDS ORDERED: ONDANSETRON HCL/PF 2 MG/ML VIAL IV PRN (22:12)
--- NOTE | 2019-10-26 22:20 | ANES ---
Post Anesthesia Discharge - Transfer of Care Transfer of Care handoff given to nurse: Yes - Discharge from PACU Discharge from PACU when meets criteria: Yes - Discharge to ASU Discharge to ASU-no complications/pt stable: Yes
--- NOTE | 2019-10-26 22:21 | OR ---
Operative Report - Dictated Report Narrative: Indication: 34-year-old at 36 2/7 weeks presents to labor and delivery in labor with prior section. status: Planned Pre Operative Diagnosis: 36 2/7-week intrauterine . labor. Prior section. Post Operative Diagnosis: Same. Procedure: Repeat low transverse section. Surgeon: Shaunna Costa DO Salvage Winder: OR Staff Anesthesia: Spinal, TAP block Estimated Blood Loss: 400 mL Urine Output: 250 mL clear urine Fluids Replacement: 2800 mL of crystalloid Drains: Walker to gravity Surgical Complications: None Specimens: Placenta to pathology Findings: Male born at 2110 on 10/26/2019 with Apgars 9 and 7, weighing 3011 g in cephalic presentation. Normal uterus, tubes, ovaries Technique: The patient was taken to the operating room and placed in dorsal supine position with a left lateral tilt. After adequate spinal anesthesia, walker catheter inserted, SCDs placed, 1.5 g of vancomycin and 2 g of Ancef given intravenously preoperatively, the abdominal cavity was entered using sharp and blunt dissection. Two rolled laps were placed in the pericolic gutters on either side of the uterus. A transverse incision was made in the lower uterine segment and extended laterally and upwardly with digital traction. Clear fluid was noted upon amniotomy. The was delivered easily. The cord was clamped and cut and was handed off to awaiting manager of software. The placenta was allowed to deliver spontaneously. The uterus was cleared of clot and debris. Uterine incision was closed with 0 Vicryl using a running stitch. A second imbricating layer was placed. Excellent hemostasis was noted. The rolled laps were removed from the abdominal cavitiy. The peritoneum was closed with a running 3-0 Monocryl. The same suture was used to approximate the rectus and pyramidalis muscles. The fascia was closed with a running 0 Vicryl. The subcutaneous layer was closed with a running 3-0 Monocryl. The same suture was used to approximate the subdermal layer. The skin was closed with a running 4-0 Monocryl and Dermabond. Sponge, lap, needle, and instrument count were correct x 2. Disposition: To post anesthesia care unit in good condition History for MU History for MU Definition: * The number of deliveries resulting in a live the patient experienced prior to current hospitalization * The previous delivery of live twins or any live multiple gestation is considered one live event. *If primagravida or nulliparous is documented select zero for the number of previous live births. Live Events: Live Events: 1
--- NOTE | 2019-10-26 22:22 | ANES ---
Post Anesthesia Assessment - Vital Signs Vitals: Last Vital Signs Temp 36.7 C 10/26/19 22:10 Pulse 122 H 10/26/19 22:10 Resp 18 10/26/19 22:10 BP 117/57 10/26/19 22:10 Pulse Ox 100 10/26/19 22:10 Airway Patency: Normal - Mental Status Level Of Consciousness: Awake - Pain Level Pain Score: 3 - N/V Assessment Nausea/Vomiting Presence: None Dehydration:: No
--- NOTE | 2019-10-26 22:22 | ANES ---
Anesthesia Procedure Note Procedure Note: ANESTHESIA PROCEDURE NOTE Date of Procedure: 10/26/2019. Time of procedure: 09/29/2004. Performed by: Lacho Morris CRNA Real Estate Teacher: None. Preprocedure diagnosis: Repeat . Post procedure diagnosis: Same. Procedure: Bilateral ultrasound-guided transversus abdominis plane block for postop analgesia. Indications: The patient is a 34-year-old female post section. Findings: See below. Details of the procedure: ChloraPrep was used on the patient's abdomen and the procedure was performed under sterile technique. The right abdominal fascial layer between the internal oblique muscle and the transversus abdominis muscles was identified under ultrasound guidance. A 21-gauge 4 inch block needle was inserted under ultrasound guidance to the target fascial plane. 15 mL's of 0.5% bupivacaine plus epinephrine 1:200,000 was injected after negative aspiration for blood. The needle was removed intact and the procedure was then repeated at the left side. No complications were noted. The images were retained in the hospital medical database. EBL: Minimal. Fluids: N/A. Specimen: N/A. Post procedure condition: The patient tolerated the procedure well. No complications were noted. Thank you for this consultation. Lacho Morris CRNA
[2019-10-26] MEDS: IBUPROFEN 800 MG TABLET PO PRN (23:22)
[2019-10-27] MEDS: ENOXAPARIN SODIUM 40 MG/0.4 ML SYRG SC SCH (05:41)
[2019-10-27] MEDS: IBUPROFEN 800 MG TABLET PO PRN ×3 (05:45→17:55)
[2019-10-27] MEDS ORDERED: ceFAZolin SODIUM 1 GM VIAL IV PRN (06:00)
[2019-10-27] MEDS: FERROUS SULFATE 325 MG TABLET PO SCH (09:11)
[2019-10-27] MEDS: DOCUSATE SODIUM 100 MG CAPSULE PO SCH ×2 (09:11→22:05)
[2019-10-27] MEDS: PRENATAL VITS96/IRON FUM/FOLIC 1 TAB TABLET PO SCH (09:11)
--- NOTE | 2019-10-27 09:18 | PN ---
Subjective - Date and Time Seen Date: 10/27/19 Time: 09:17 Objective - Vitals Vitals: Last Vital Signs Temp 36.6 C 10/27/19 01:08 Pulse 93 10/27/19 03:04 Resp 16 10/27/19 03:04 BP 105/59 10/27/19 03:04 Pulse Ox 98 10/27/19 03:04 Patient denies complaints. Tolerating regular diet. Ambulating without difficulty. Pain well controlled. Lochia wnl. Abdomen - soft, appropriately tender Incision -clean, dry, intact uterus - firm, at umbilicus -1 no calf tenderness Impression: Post op day #1 s/p repeat section. Plan: Continue routine post-operative/ care Cauti Physician Documentation - Urinary Catheter Management Urethral (Bower) Date of Insertion: 10/26/19 Time of Insertion: 21:10 Assessment/Plan - Problems/Diagnosis (1) labor in third trimester Problem: Acute (2) Dehydration symptoms Problem: Acute (3) History of loop electrical excision procedure (LEEP) Problem: Acute (4) History of delivery, currently Problem: Chronic (5) Previous section Problem: Chronic (6) Osmel-Danlos syndrome Problem: Chronic (7) Bilateral kidney stones Problem: Inactive (8) Focal segmental glomerulosclerosis Problem: Chronic
[2019-10-27] MEDS: oxyCODONE HCL/ACETAMINOPHEN 1 TAB TABLET PO PRN (17:54)
[2019-10-28] MEDS: IBUPROFEN 800 MG TABLET PO PRN ×4 (06:22→18:47)
[2019-10-28] MEDS: ENOXAPARIN SODIUM 40 MG/0.4 ML SYRG SC SCH (06:22)
--- NOTE | 2019-10-28 08:54 | PN ---
Subjective - Date and Time Seen Date: 10/28/19 Time: 08:53 Objective - Vitals Vitals: Last Vital Signs Temp 36.3 C 10/28/19 06:44 Pulse 78 10/28/19 06:44 Resp 18 10/28/19 06:44 BP 110/67 10/28/19 06:44 Pulse Ox 99 10/28/19 06:44 Patient denies complaints. Ambulating well. Tolerating regular diet. Pain well controlled. Lochia wnl. Abdomen - soft, appropriately tender Incision -clean, dry, intact uterus - firm, at umbilicus -2 no calf tenderness Impression: Post op day #2 s/p repeat section. Plan: Continue routine post-operative/ care Cauti Physician Documentation - Urinary Catheter Management Urethral (Bower) Date of Insertion: 10/26/19 Time of Insertion: 21:10 Assessment/Plan - Problems/Diagnosis (1) labor in third trimester Problem: Acute Qualifiers: labor delivery status: with delivery in third trimester (2) Dehydration symptoms Problem: Resolved (3) History of loop electrical excision procedure (LEEP) Problem: Chronic (4) History of delivery, currently Problem: Resolved (5) Previous section Problem: Chronic (6) Osmel-Danlos syndrome Problem: Chronic (7) Bilateral kidney stones Problem: Inactive (8) Focal segmental glomerulosclerosis Problem: Chronic
[2019-10-28] MEDS: PRENATAL VITS96/IRON FUM/FOLIC 1 TAB TABLET PO SCH (09:26)
[2019-10-28] MEDS: FERROUS SULFATE 325 MG TABLET PO SCH (09:26)
[2019-10-28] MEDS: DOCUSATE SODIUM 100 MG CAPSULE PO SCH ×2 (09:26→21:00)
[2019-10-28] MEDS: oxyCODONE HCL/ACETAMINOPHEN 1 TAB TABLET PO PRN ×2 (16:47)
[2019-10-29] MEDS: oxyCODONE HCL/ACETAMINOPHEN 1 TAB TABLET PO PRN ×2 (00:23→06:49)
[2019-10-29] MEDS: IBUPROFEN 800 MG TABLET PO PRN ×3 (00:48→13:54)
[2019-10-29] MEDS: DOCUSATE SODIUM 100 MG CAPSULE PO SCH ×3 (06:49→21:20)
[2019-10-29] MEDS: FERROUS SULFATE 325 MG TABLET PO SCH ×2 (06:49→12:11)
[2019-10-29] MEDS: ENOXAPARIN SODIUM 40 MG/0.4 ML SYRG SC SCH (06:49)
[2019-10-29] MEDS: PRENATAL VITS96/IRON FUM/FOLIC 1 TAB TABLET PO SCH ×2 (06:51→12:12)
--- NOTE | 2019-10-29 08:55 | PN ---
Subjective - Date and Time Seen Date: 10/29/19 Time: 08:53 Objective - Vitals Vitals: Last Vital Signs Temp 36.1 C 10/29/19 07:22 Pulse 80 10/29/19 07:22 Resp 18 10/29/19 07:22 BP 124/75 10/29/19 07:22 Pulse Ox 100 10/29/19 07:22 Patient denies complaints. Ambulating without difficulty. Tolerating regular diet. Pain well controlled. Breast-feeding well. Lochia wnl. Abdomen - soft, appropriately tender Incision -clean, dry, intact uterus - firm, at umbilicus -3 no calf tenderness Impression: Post op day #3 s/p repeat section. Baby failed car seat challenge with an extra day or 2. Plan: Routine discharge instructions. Board for baby. Cauti Physician Documentation - Urinary Catheter Management Urethral (Bower) Date of Insertion: 10/26/19 Time of Insertion: 21:10 Assessment/Plan - Problems/Diagnosis (1) labor in third trimester Problem: Acute Qualifiers: labor delivery status: with delivery in third trimester (2) History of loop electrical excision procedure (LEEP) Problem: Chronic (3) Previous section Problem: Chronic (4) Osmel-Danlos syndrome Problem: Chronic (5) Focal segmental glomerulosclerosis Problem: Chronic
[2019-10-29 19:39] VITALS: BP 115/55
== END 2019-10-29 23:58 | disposition home or self-care (01) | DRG 787 ==
LOC: INTOOBSV 10-26 17:49 → OBSVTOIN 10-26 17:49 → OB 10-26 17:49 → MS 10-27 07:54 → OB 10-27 08:05
PROVIDERS: ADMIT Obstetrics & Gynecology; ATTEND Obstetrics & Gynecology
CPT/HCPCS: 59025; 80307; 88307; 88888; J2405